=== PATIENT | male | born 1965 | race Caucasian/White ===

== ENCOUNTER → 2017-05-11 | Outpatient (CLI) | payer OTHER ==
[~2017-05-11] MED LIST: B-COTAB18 PO; LORA0.5T12 PO; OPTIRAY 320 IV PRN; OXYC5TAB PO
--- NOTE | 2017-05-11 09:33 | DIAGNOSTIC IMAGING REPORT ---
PELVIS W/IV AND ORAL CONT (CT) CLINICAL HISTORY: 51 years-old Male presenting with ABSCESS OF ANAL OR RECTAL REGION. TECHNIQUE: Multidetector CT of the pelvis was performed after the administration of oral and intravenous contrast. IV contrast: 119 mL of Optiray 320. A dose lowering technique was used consistent with the principles of ALARA (as low as reasonably achievable). COMPARISON: 06/13/2014. CT DOSE (mGy.cm): The estimated cumulative dose is 561.12 mGycm. FINDINGS: Valance Cutter topogram: Surgical clips likely relate to vasectomy. Small gas and fluid containing collection along the left posterior lateral aspects of the anorectal junction measuring approximately 2.9 cm in maximal transverse dimension. Mild wall thickening of the anorectal junction suggested. Evaluation for fistula is limited on CT. Allowing for this, there is suggestion of a sinus tract extending from the collection inferiorly and exiting at the left medial gluteal cleft along the superficial aspect of the external sphincter. There is also a suggestion of a linear gas filled tract from the collection superiorly to the 6:00 position of the anus. Remaining visualized portion of the bowel normal. Prostatic calcifications in the prostate likely related to benign prostatic hyperplasia. Mild circumferential bladder wall thickening. Calcified perirectal lymph node noted. No lymphadenopathy. Vasculature patent. Post surgical changes of vasectomy. No inguinal hernia. Osseous structures demonstrate degenerative change at the bilateral sacroiliac joints. IMPRESSION: Findings consistent with perirectal abscess along the left posterior lateral aspect at the level of the rectal junction. Questionable sinus tract extending to the left medial gluteal cleft from the collection as well as an associated fistula at the 6:00 position of the anus. These would be better evaluated with contrast-enhanced MR of the pelvis and dedicated perianal fistula protocol. Electronically signed by: Gianni Flores M.D. 05/11/2017 9:32 AM Dictated Date/Time: 05/11/2017 9:24 AM
== END | disposition home or self-care (01) ==
LOC: C.CTS 09:01
PROVIDERS: ATTEND Internal Medicine
DX: K61.2 Anorectal abscess (principal)

== ENCOUNTER → 2017-05-15 | Outpatient (CLI) | payer OTHER ==
[~2017-05-15] MED LIST changes: -OPTIRAY 320 IV PRN
[2017-05-15 09:46] LABS: BASO % 0.9 %; BASO ABS # 0.04 K/uL (0-0.2); COMPLETE YES; EOS % 2.9 %; HEMATOCRIT 40.2 % (42-52); LYMPH % 44.4 %; MEAN CELL VOLUME 88.7 fL (80-100); MEAN CORPUSCULAR HEMOGLOBIN 30.5 pg (25-34); MEAN CORPUSCULAR HGB CONC 34.3 g/dl (32-36); MONO % 9.8 %; PLATELET COUNT 175 K/uL (130-400); RED BLOOD COUNT 4.53 M/uL (4.7-6.1)
[2017-05-15 10:03] LABS: ALT/SGPT 30 U/L (12-78); BLOOD UREA NITROGEN 17 mg/dl (7-18); BUN/CREATININE RATIO 15.3 (10-20); CARBON DIOXIDE 27 mmol/L (21-32); CHLORIDE 108 mmol/L (98-107); GLUCOSE 99 mg/dl (70-99); POTASSIUM 4.3 mmol/L (3.5-5.1); SODIUM 141 mmol/L (136-145)
[2017-05-15 10:14] LABS: ALB/GLOB RATIO 1.1 (0.9-2); ALKALINE PHOSPHATASE 50 U/L (45-117); AST/SGOT 27 U/L (15-37)
== END | disposition home or self-care (01) ==
LOC: C.LAB1850 08:06
PROVIDERS: ATTEND Internal Medicine
DX: E78.00 Pure hypercholesterolemia, unspecified (principal); E06.9 Thyroiditis, unspecified; K61.2 Anorectal abscess; E53.8 Deficiency of other specified B group vitamins

== ENCOUNTER → 2017-05-21 | Outpatient (CLI) | payer OTHER ==
--- NOTE | 2017-05-22 06:27 | PAP/PSG TECHNICIAN REPORT ---
[facility] Elementary Educator Polysomnogram Report Study name: None Report date: 05/22/2017 Study date: 05/21/2017 Referring Physician: DR. Yasemin GRACIA Name: MONY MOTLEY Interpreting Physician: Ren Live M.D. Date of : 1965 Elementary Educator: Terrance Mccormick RPSSHAYLEE. Sex: Male Age: 51 StudyType: PSG Weight: 197 lbs Height: 51 years, Height 5' 10" BMI: 28.26 Medications: NONE LISTED Patient History PATIENT HAS HISTORY OF HYPERCHOLESTEROLEMIA, THYROIDITIS, NITESH AND SNORING. HE HAD A SLEEP STUDY DONE MANY YEARS AGO AND WAS POSITIVE FOR NITESH. HE WORE CPAP FOR A SHORT TIME BUT WAS NOT COMPLIANT. HE IS HERE TODAY FOR AN EVALUATION FOR NITESH. ESS = 8 RM 7 Parameters Monitored NPSG: E1-M2, E2-M1, Fp1-M2, Fp2-M1, F3-M2, F4-M2, F4-M1, C3-M2, C4-M2, C4-M1, O1-M2, O2-M2, O2-M1, T3-M2, T4-M1, P3-M2, P4-M1, CHIN1, CHIN2, HR, EKG, Legs, PFLOW, SNOR, FLOW, CFLOW, Tidal Volume, THOR, ABDO, SpO2, PLTH, CPRESS, ETCO2 Wave, ETCO2, pH Sleep Architecture Sleep Stages Time at Lights Off 10:35:10 PM STAGES Time (min.) TST (%) Time at Lights On 5:45:40 AM Wake 54.5 -- Total Recording Time (TRT) 431.00 min. N1 26.0 7 Total Sleep Period (TSP) 419.0 min. N2 276.5 74 Total Sleep Time (TST) 376.0min. N3 8.0 2 Awake Time 54.5 min. REM 65.5 17 Wake after Sleep Onset 43.0 min. Sleep Efficiency (SE) 87 % Sleep Onset Latency (GONZALO) 11.5 min. Number of Stage 1 Shifts None Awakenings 23 Stage Changes 78 Number of REM periods 5 REM 65.5 17 REM Latency 55.0 min. NREM 310.5 83 Body Position Analysis Supine Right Left Side Prone Vertical Total Sleep Time (min.) 362.6 65.5 0.0 65.50 0.0 0.0 Total Sleep Time (%) 83% 17% 0% 17 0% N/A% Total Sleep Time REM (min.) 65.5 0.0 0.0 None 0.0 0.0 Total Sleep Time NREM (min.) 245.0 65.5 0.0 None 0.0 0.0 Intermittent Wake (min.) 52.1 2.4 0.0 None 0.0 0.0 Total Sleep Period (%) 84% None None None None None Arousals Myoclonus (PLM) * Events Count Index Events Count Index Spontaneous 37 6 Events Awake (PLMW) 16 17.6 Respiratory 19 3.0 Events Asleep w/ Arousal (PLMA) 4 0.6 PLM 4 1 Events Asleep w/o Arousal (PLMS) 273 43.6 Snoring 11 2 Total Asleep 277 44.2 Total 69 11 Total 293 41 Respiratory Analysis * CA OA MA CH H RERA Total Count 1 3 0 0 97 4 101 Index 0.2 0.5 0.0 0 15.5 1 16.8 Mean Duration 19.1 16.4 0.0 0.00 24.4 20.0 24.0 Longest Duration 19.1 19.7 0.0 0.00 0.0 27.1 46.6 Respiratory Event Summary Total Supine ~Supine Right Left Prone REM NREM Apneas Count 4 4 0 0 N/A N/A 4 0 Index 0.6 1 0 0.0 N/A N/A 4 0 Hypopneas (4% Desat) Count 97 97 0 0 N/A N/A 51 46 Index 15.5 18.7 0 0.0 N/A N/A 46.7 8.9 Apneas & All Hypopneas Count 101 101 0 0 N/A N/A 55 46 Index 16.1 20 0 0 N/A N/A 50.4 8.9 Respiratory Events (Mechanic Senior+All Hyp+RERA) Count 101 105 0 0 N/A N/A 55 46 Index 16.8 20 0 0.0 N/A N/A 50.4 9.7 Respiratory Related Arousal Count 19 105 0 0 N/A N/A 9 10 Index 3.0 4 0 0 N/A N/A 8 2 Snoring Analysis Supine Right Left Prone REM NREM Total Snore duration 31.4 min Snores count 538 469 N/A N/A 139 868 1,007 Snore mean duration 1.9 Sec Snores index 104 430 N/A N/A 127.3 167.7 160.7 TST with snoring (%) 8.3% Desaturation Event Summary: Minimum %SpO2 Event Count Mean/Min/Max Duration(sec.) Desaturation Index % Time In Bed > 90 96 35.8 / 12.8 / 97.1 16.2 82.8 86 - 90 6 26.1 / 13.0 / 52.5 5.2 16.0 81 - 85 2 43.2 / 34.0 / 52.5 30.5 0.9 76 - 80 0 N/A 0.0 0.2 71 - 75 0 N/A 0.0 0.0 66 - 70 0 N/A 0.0 0.0 61 - 65 0 N/A 0.0 0.0 56 - 60 0 N/A 0.0 0.0 51 - 55 0 N/A 0.0 0.0 < 50 0 N/A 0.0 0.0 Total REM NREM Awake <50% 0.0 min. 0.0 min. 0.0 min. 0.0 min. 51 - 60% 0.0 min. 0.0 min. 0.0 min. 0.0 min. 61 - 70% 0.0 min. 0.0 min. 0.0 min. 0.0 min. 71 - 80% 1.0 min. 1.0 min. 0.0 min. 0.0 min. 81 - 90% 73.0 min. 23.3 min. 47.4 min. 2.4 min. 91 - 100% 356.5 min. 41.2 min. 263.2 min. 52.1 min. Average 93 92 93 94 Minimum SpO2 76 76 85 86 Desaturation Event Index 14.1 49.5 8.7 2.2 # Desat. Events below 89% 40 29 10 1 Time(%) with Saturation below 89% 3.9 2.8 1.0 0.1 Time(min.) with Saturation below 89% 16.9 12.3 4.2 0.4 Time (mins) REM (mins) NREM (mins) % of TST SpO2 Below 90% 71 46 N25 10.5 SpO2 Below 88% 25 0 0 3 Heart Rate Analysis Min (bpm) Max (bpm) Average (bpm) Awake 60 94 68 NREM 61 87 70 REM 47 90 67 Overall 47 90 70 Supplemental O2 Values Minimum O2 level: None Value Start Time End Time Elementary Educator Comments Mr. Motley slept in the right and supine positions. No cardiac arrhythmia noted. Leg movements noted. No bruxism noted. Snoring was noted and scored as a 3 on a scale of 1 through 5. (0=no snoring, 5=snoring loud enough to be heard through a closed door or down the byrd way) Mr. Motley awoke to use the restroom 0 times during the night. Mr. Motley stated I did not sleep as well as I do when I am in my own bed. The final report will be interpreted and signed by a sleep physician. The completed physician report will then be placed in the patient medical record. Therapy (cm H2O) 0 TIB (min.) 430.5 TST (min.) 376.0 Sleep Onset (min.) 11.5 REM Onset From Sleep (min.) 55.0 Sleep Efficiency % 87 Wakefulness (%) 13 Wakefulness (min.) 54.5 NREM 1 (%) 7 NREM 1 (min.) 26.0 NREM 2 (%) 74 NREM 2 (min.) 276.5 NREM 3 (%) 2 NREM 3 (min.) 8.0 REM (%) 17 REM (min.) 65.5 # Arousals 69 Arousal Index 11 # Snore 1,007 Snore Index 160.7 AHI 16.1 AHI Supine 20 AHI Non-Supine 0 NREM AHI 8.9 REM AHI 50.4 RDI 16.8 # Obstructive Apnea 3 # Central Apnea 1 # Mixed Apnea 0 # Hypopneas 97 RERAs 4 Total Respiratory Events 106 Time Below SpO2 89% (min.) 16.5 Mean NREM SpO2 (%) 93 Mean REM SpO2 (%) 92 Mean Sleep SpO2 (%) 93 Min NREM SpO2 (%) 85 Min REM SpO2 (%) 76 Position Supine (min.) 362.6 Position Non-supine (min.) 65.5 LM Index Sleep 44.2 LM Index NREM 49.3 LM Index REM 20.2 Mean Heart Rate (bpm) 70 Min Heart Rate (bpm) 47
--- NOTE | 2017-05-23 13:55 | POLYSOMNOGRAPH REPORT ---
CLINICAL DATA: A 51-year-old male with BMI of 28.[address] Gianni Guadarrama for evaluation of sleep apnea. He was previously diagnosed with sleep apnea many years ago and was on CPAP for short time but was noncompliant. His [place] Sleepiness Score was 8/24. SLEEP ARCHITECTURE: Total sleep period was 419 minutes. Total sleep time was 376 minutes divided between 310.5 minutes of non-REM sleep and 65.5 minutes of REM sleep. Sleep onset latency was 11.5 minutes. REM latency was 55 minutes. Sleep efficiency was 87%. Wake after sleep onset was 43 minutes. Sleep consisted of stage N1 7%, stage N2 74%, stage N3 2%, non-REM 17%. AROUSAL DATA: Sixty nine arousals were recorded for an index of 11 per hour. PERIODIC LIMB MOVEMENTS DATA: Moderately elevated limb movements during sleep were noted. There were 277 limb movements during sleep were noted for an index of 44.2 per hour with arousal index of 0.6 per hour. RESPIRATORY DATA: Moderate sleep apnea was documented. The AHI was 16.1. There was 1 central and 3 obstructive apneic episodes. The longest duration of apnea was 19.7 seconds. There were 97 hypopneic episodes with a mean duration of 24.4 seconds. OXIMETRY DATA: Nocturnal hypoxemia was seen. Oxygen gabriele was 76% during REM. The mean saturation was 93%. Time below 88% was 25 minutes. ELECTROCARDIOGRAM: Heart ranged from 47-90 beats per minute. No arrhythmias were noted. CHIEF OPERATOR LOCK TENDER'S COMMENTS: The patient slept in the right and supine positions. Snoring was moderate, rated 3 on a scale of 1-5. IMPRESSION: Moderate sleep apnea/hypopnea with an apnea-hypopnea index of 16.1 with significant nocturnal hypoxemia and an oxygen gabriele of 76%. RECOMMENDATIONS: The patient may benefit from a repeat sleep study with CPAP, use of auto CPAP, or referral for an oral appliance. Sleep medicine consultation may be of benefit. Clinical correlation is needed. GREGORIO
== END | disposition home or self-care (01) ==
LOC: C.NEUR 21:00
PROVIDERS: ATTEND Internal Medicine
DX: G47.30 Sleep apnea, unspecified (principal)

== ENCOUNTER → 2017-06-20 | Outpatient (CLI) | payer OTHER ==
--- NOTE | 2017-06-22 13:57 | POLYSOMNOGRAPH REPORT ---
CLINICAL DATA: A 51-year-old male with BMI of 28.[address] Gianni Guadarrama for a CPAP titration study. He had a baseline study which showed moderate sleep apnea with an AHI of 16.1. SLEEP ARCHITECTURE: Total sleep period was 409 minutes. Total sleep time was 370 minutes divided between 240.5 minutes of non-REM sleep, 129.5 minutes of REM sleep. Sleep onset latency was 3 minutes. REM latency was 66 minutes. Sleep efficiency was 90%. Wake after sleep onset was 39.5 minutes. Sleep consisted of stage N1 4%, stage N2 56%, stage N3 5%, and REM 35%. AROUSAL DATA: Twenty-seven arousals were recorded for an index of 4 per hour. PLM DATA: Mildly elevated limb movements during sleep were noted. There is 160 limb movements during sleep noted for an index of 25.9 per hour with arousal index of 0.6 per hour. RESPIRATORY DATA: The AHI was 1.3. There were 2 central and 2 obstructive apneic episodes. The longest apneic episode was 15.3 seconds. There were 4 hypopneic episodes with a mean duration of 19 seconds. OXIMETRY DATA: No significant hypoxemia was seen. Oxygen gabriele was 86% during REM. The mean saturation was 92%. Time below 88% was less than 1 minute. EKG: Heart rates ranged from 50-127 beats per minute. No arrhythmias noted. MACHINE MOLDER SQUEEZE'S COMMENTS AND TREATMENT SUMMARY: The patient slept in the right, left, and supine positions. The patient used a ResMed AirFit N20 mask. He was titrated up to 7 cm water pressure. At his final pressure setting, he slept for just under 58 minutes with an AHI of 0. IMPRESSION: Moderate sleep apnea/hypopnea corrected with CPAP 7 cm of water pressure ResMed AirFit N20 mask. RECOMMENDATIONS: The patient will be started on the above noted treatment regimen and seen back in followup within 90 days to document efficacy and compliance. [facility]
== END | disposition home or self-care (01) ==
LOC: C.NEUR 20:00
PROVIDERS: ATTEND Internal Medicine
DX: G47.33 Obstructive sleep apnea (adult) (pediatric) (principal)

== ENCOUNTER → 2017-09-12 | Outpatient (CLI) | payer OTHER | END | disposition home or self-care (01) | LOC: C.LABBC 14:06 | PROVIDERS: ATTEND Internal Medicine | DX: E03.9 Hypothyroidism, unspecified (principal) ==

== ENCOUNTER → 2017-11-21 | Outpatient (CLI) | payer OTHER | END | disposition home or self-care (01) | LOC: C.LABBC 08:12 | PROVIDERS: ATTEND Internal Medicine Endocrinology, Diabetes & Metabolism | DX: E03.9 Hypothyroidism, unspecified (principal) ==

== ENCOUNTER → 2018-03-09 | Outpatient (CLI) | payer OTHER ==
--- NOTE | 2018-03-09 08:38 | DIAGNOSTIC IMAGING REPORT ---
LEFT LOWER LEG ULTRASOUND CLINICAL HISTORY: Left calf injury with pain. COMPARISON STUDY: None. FINDINGS: Increased echogenicity within the mid gastrocnemius muscle of the left lower leg. This may represent small amount of intramuscular/interstitial hemorrhage. However, no complex fluid collections to suggest a large hematoma. IMPRESSION: Increased echogenicity within the gastrocnemius muscle of the left lower leg suggesting a small amount of intramuscular/interstitial hemorrhage. This favors a grade II muscular strain. No loculated fluid collections to suggest a hematoma. Electronically signed by: Chun Quintero M.D. 03/09/2018 8:36 AM Dictated Date/Time: 03/09/2018 8:24 AM
== END | disposition home or self-care (01) ==
LOC: C.ULTRBC 07:55
PROVIDERS: ATTEND Nurse Practitioner Adult Health
DX: S89.90XA Unspecified injury of unspecified lower leg, initial encounter (principal); X58.XXXA Exposure to other specified factors, initial encounter

== ENCOUNTER → 2018-03-09 | Outpatient (CLI) | payer OTHER | END | disposition home or self-care (01) | LOC: C.LABBC 08:17 | PROVIDERS: ATTEND Internal Medicine | DX: Z00.00 Encounter for general adult medical examination without abnormal findings (principal) ==